=== PATIENT | female | born 1960 | race Caucasian/White ===

== ENCOUNTER 2021-09-16 18:07 | Emergency (ER) | payer OTHER, SELFPAY ==
--- NOTE | 2021-09-16 18:12 | ED.URI ---
HPI - URI/Sore Throat General Chief Complaint: Upper Respiratory Infection Stated Complaint: Chills,Headache Time Seen by Provider: 09/16/21 18:12 Source: patient Mode of arrival: ambulatory Limitations: no limitations History of Present Illness HPI Narrative: Ms. Jenkins is a 61-year-old female patient presenting to the clinic today with complaints of chills, fever, and headache x8 days. She reports that she was seen by her primary care provider a few days ago and was told that she had water behind her ears and was told to take Flonase but she states that she does not do Flonase because she does not like it. States her temperature has gotten as high as 102 ?F in the evening. She denies any known exposure to anybody with COVID, flu, or strep Related Data Home Medications Medication Instructions Recorded Confirmed No Home Medications 09/16/21 09/16/21 Allergies Allergy/AdvReac Type Severity Reaction Status Date / Time No Known Allergies Allergy Verified 09/16/21 18:31 Review of Systems Review of Systems: Pertinent positives per HPI. Patient denies any rash, visual changes, dizziness, cough, runny nose, sore throat, shortness of breath, chest pain, palpitations, nausea, vomiting, diarrhea, constipation, abdominal pain, or any urinary issues. PMFSH Comments At the time of my signature, I reviewed and agree with the nursing past medical, surgical, social, and family history. There is no relevant family history pertinent to the patient complaint. Exam Narrative: General: Well-developed, well nourished, in no apparent distress Head: Normocephalic, atraumatic Eyes: Pupils equally round and reactive to light bilaterally, EOM intact, sclera and conjunctive clear, no discharge, lids normal Ears: TMs intact and dull, ear canals clear, no drainage, grossly hearing normal. Nose: Nares patent, clear discharge, no inflammation, no sinus tenderness. Mouth: Oropharynx without lesions or masses, good dentition, MMM. Oropharynx mildly red without tonsillar enlargement Neck: Supple, trachea midline, no enlargement of anterior or posterior cervical nodes, no thyroid masses or goiter palpable. Cardio: Regular rate and rhythm, s1 and s2 normal, no murmur appreciated. Resp: Clear to auscultation bilaterally anteriorly and posteriorly, no rhonchi, rales, wheezing or rubs Abdomen: Soft, pliable, nontender to palpation, bowel sounds present all 4 quadrants, no organomegaly, no CVAT tenderness Course Course Emergency Course: Portions of this record may have been created with voice recognition software. Level of Care: Express Care Visit Vital Signs Vital signs: Vital signs reviewed MDM - URI/Sore Throat MDM Narrative Medical decision making narrative: At the time of visit patient is resting comfortably on the exam table. Blood test and urine analysis are negative for any infection. Her symptoms have been ongoing for 8 days so I do not feel that testing for COVID or influenza would be beneficial as there is no treatment other than supportive measures. I suspect the patient has viral syndrome and supportive measures were discussed with the patient she voiced understanding of discharge instructions and agrees to treatment plan. Differential Diagnosis Differential diagnosis: Likely upper respiratory infection, sinusitis, viral infection, bronchitis, influenza, pharyngitis and other (COVID, UTI) Discharge Plan Discharge Clinical Impression: Viral syndrome Patient Disposition: Home, Self-Care Condition: Stable Instructions: Viral Syndrome (ED) Additional Instructions: Strep screen negative in the clinic. We will send for culture UA negative for infection Lung sounds are clear on assessment. Since your symptoms have been going on for 8 days I do not feel that testing for covid or influenza is needed as there is no treatment except for supportive measures listed below. Increase fluids and stay well hydrated
[2021-09-16 18:21] VITALS: BP 108/85; PULSE 80; RESP 18; TEMP 37.5; O2SAT 97
== END 2021-09-16 18:58 | disposition home or self-care (01) ==
PROVIDERS: Emergency Provider Nurse Practitioner Family
DX: B34.9 Viral infection, unspecified (principal)
CPT/HCPCS: 81003; 87081; 87880; 99203; G0463

== ENCOUNTER 2023-03-30 13:22 | Emergency (ER) | payer OTHER, SELFPAY ==
[2023-03-30 13:28] VITALS: BP 111/52; PULSE 67; RESP 16; TEMP 36.6; O2SAT 97
--- NOTE | 2023-03-30 13:28 | ED.URI ---
HPI - URI/Sore Throat General Chief Complaint: Upper Respiratory Infection Stated Complaint: Sinus Infection and Earache Time Seen by Provider: 03/30/23 13:23 Source: patient Mode of arrival: ambulatory Limitations: no limitations History of Present Illness HPI Narrative: Marie is a 62-year-old female patient presenting to the clinic today with complaints of possible sinus infection and earache. She reports symptoms have been going on since . She reports that she did 102 earlier her illness however the fever has resolved. Is blowing out green nasal drainage in having a lot of sinus pressure and bilateral ear pain. MD elicited complaint: sore throat and nasal congestion Related Data Allergies Allergy/AdvReac Type Severity Reaction Status Date / Time No Known Allergies Allergy Verified 03/30/23 13:24 Review of Systems Review of Systems: Pertinent positives per HPI. Patient denies any fever, chills, rash, headache, visual changes, dizziness, shortness of breath, chest pain, palpitations, nausea, vomiting, diarrhea, constipation, abdominal pain, or any urinary issues. PMFSH Comments At the time of my signature, I reviewed and agree with the nursing past medical, surgical, social, and family history. There is no relevant family history pertinent to the patient complaint. Exam Narrative: General: Well-developed, well nourished, in no apparent distress Head: Normocephalic, atraumatic Eyes: Pupils equally round and reactive to light bilaterally, EOM intact, sclera and conjunctive clear, no discharge, lids normal Ears: TMs intact and congested, ear canals clear, no drainage, grossly hearing normal. Nose: Nares patent, green nasal discharge, moderate inflammation, maxillary sinus tenderness. Mouth: Oral pharynx without lesions or masses, good dentition, MMM. Neck: Supple, trachea midline, no enlargement of anterior or posterior cervical nodes, no thyroid masses or goiter palpable. Cardio: Regular rate and rhythm, s1 and s2 normal, no murmur appreciated. Resp: Clear to auscultation bilaterally, no rhonchi, rales, wheezing or rubs Course Course Emergency Course: Portions of this record may have been created with voice recognition software. Level of Care: Express Care Visit Vital Signs Vital signs: Vital signs reviewed MDM - URI/Sore Throat MDM Narrative Medical decision making narrative: At the time of visit patient is resting comfortably on the exam table. Patient appears to be nontoxic. I suspect patient has acute bacterial rhinosinusitis. Prescription for Augmentin and prednisone was sent to pharmacy. Supportive measures were discussed with the patient and they voiced understanding discharge instructions and agrees to treatment plan. Return precautions reviewed Differential Diagnosis Differential diagnosis: Likely upper respiratory infection, otitis media, sinusitis, viral infection, bronchitis, influenza, pharyngitis and other (COVID) Discharge Plan Discharge Clinical Impression: Acute bacterial rhinosinusitis Patient Disposition: Home, Self-Care Condition: Stable Instructions: Antibiotic Form, Rhinosinusitis (ED) Additional Instructions: Take prescription medications only as prescribed-Augmentin and prednisone Increase fluids and stay well hydrated Tylenol/motrin for pain/fever Flonase and OTC antihistamines as directed Vicks vapor rub to open sinuses Sinus rinses for congestion Cepacol spray, cough drops, throat lozenges, warm tea with honey/lemon, gargle salt water to soothe throat BRAT diet for diarrhea Clear liquids x 24 hours then advance as tolerated for nausea/vomiting Go to the ED if you develop a worsening in your condition- high fever not controlled by Tylenol or Motrin, dehydration, weakness, lethargy, shortness of breath, or chest pain. Follow up with your PCP in 3-5 days if symptoms persist. Prescriptions: New prednisone 20 mg tablet
== END 2023-03-30 13:40 | disposition home or self-care (01) ==
PROVIDERS: Emergency Provider Nurse Practitioner Family
DX: J01.90 Acute sinusitis, unspecified (principal)
CPT/HCPCS: 99213; G0463

== ENCOUNTER 2024-05-27 12:33 | Emergency (ER) | payer OTHER, SELFPAY ==
--- NOTE | 2024-05-27 12:38 | ED_ITS ---
HPI - URI/Sore Throat General Chief Complaint: Upper Respiratory Infection Stated Complaint: sinus irritation Time Seen by Provider: 05/27/24 12:37 Source: patient Mode of arrival: ambulatory Limitations: no limitations History of Present Illness HPI Narrative: Patient is a 64-year-old female who presents with a week and half of sinus congestion, runny nose, ear irritation, intermittent cough. Reports 100.4 fever on Thursday but has not had 1 since. Patient denies any nausea, vomiting, diarrhea who sore throat. Patient has taken turmeric. Related Data Allergies Allergy/AdvReac Type Severity Reaction Status Date / Time No Known Allergies Allergy Verified 05/27/24 12:40 Review of Systems Review of Systems: All systems reviewed & are unremarkable except as noted in HPI and below Constitutional: Constitutional: Denies chills, Denies fatigue, Denies fever(s), Denies headache(s), Denies malaise and Denies weakness Eyes: Eyes: Denies blurry vision, Denies itchy eyes and Denies loss of vision ENT: Reports otalgia, Denies headache(s), Reports nasal congestion, Denies sinus pain, Reports sinus pressure and Denies sore throat Cardiovascular: Cardiovascular: Denies chest pain, Denies irregular heart rhythm and Denies dyspnea Respiratory: Respiratory: Reports cough and Denies dyspnea Gastrointestinal: Gastrointestinal: Denies abdominal pain, Denies diarrhea, Denies nausea and Denies vomiting Musculoskeletal: Musculoskeletal: Denies back pain, Denies myalgias and Denies arthralgias Integumentary/Breasts: Skin/Breast: Denies pruritus and Denies rash Neurologic: Denies headache(s), Denies loss of vision and Denies weakness Psychiatric: Psychiatric: Reports no additional psychiatric complaints Endocrine: Endocrine: Denies fatigue Allergic/Immunologic: Allergic/Immunologic: Denies itchy eyes PMFSH Comments At time of signature, agree with nursing past medical, surgical, social and family history. There is no relevant family history pertinent to the presenting complaint. Exam Const: General: cooperative, healthy appearing, comfortable, no acute distress and well nourished Nutritional Appearance: well nourished Orientation/consciousness: patient oriented x3 Limitations: no limitations HENMT: Head: normal to inspection, normocephalic and atraumatic Ears: hearing grossly normal bilaterally, external ears normal, TM's normal bilaterally, EAC's normal and no periauricular adenopathy Face/Nose/Sinus: Normal external nose present, Abnormal mucous membranes and turbinates present erythematous bilateral and diffuse, normal facial exam, face symmetric and Facial tenderness on exam of face and sinuses Face and sinus: normal facial exam and face symmetric Mouth: Yes Normal oral and palatal mucosa present, Yes lip normal, Yes tongue normal, Yes Normal salivary glands and ducts present, Yes oropharynx normal and Yes moist mucous membranes Teeth and gingiva: dentition normal Throat: posterior oropharynx normal, tonsils normal and uvula midline Eyes: General: appearance normal, both eyes and all related structures Alignment and Position: alignment normal and position normal Periorbital: periorbital findings normal Eyelids: eyelids normal Pupils: Equal, round and reactive pupils present Neck: Neck: normal visual inspection, full ROM, no lymphadenopathy and supple Chest: Chest palpation & inspection: normal inspection of the chest and normal palpation of entire chest wall Resp: Effort & Inspection: normal respiratory effort and able to speak in complete sentences Auscultation: clear to auscultation bilaterally, no crackles, no rales, no rhonchi and no wheezes Cardio: Rate: regular rate Rhythm: regular rhythm Heart sounds: S1 normal heart sound present and S2 normal heart sound present GI: Inspection: normal to inspection Skin: General skin exam: normal color and no rashes or lesions noted Neuro: General: patient oriented x3 and moves all extremities Cranial nerves: Yes Equal, round and reactive pupils present Speech: normal speech Gait exam (Neuro): Normal gait present Extrem: General: normal to inspection, full ROM and no edema Psych: Appearance: grossly normal and well kempt Mental Status: mental status grossly normal Speech and movement: Normal speech and movement present Affect: normal affect Attitude: cooperative Thought process: Normal thought process present Course Course Emergency Course: Discharge instructions reviewed with patient, as well as provided in writing per nursing staff. The instructions also include specific and strict return/GO TO THE ER as well as f/u information. All questions have been answered, and the patient deny any further questions with discharge and discharge plan. Portions of this record may have been created with voice recognition software Level of Care: Express Care Visit Vital Signs Vital signs: Vital Signs Temperature 36.5 C 05/27/24 12:46 Pulse Rate 67 05/27/24 12:46 Respiratory Rate 18 05/27/24 12:46 Blood Pressure 118/67 05/27/24 12:46 Pulse Oximetry 99 05/27/24 12:46 Oxygen Delivery Room Air 05/27/24 12:46 Temperature 36.5 C 05/27/24 12:46 Pulse Rate 67 05/27/24 12:46 Respiratory Rate 18 05/27/24 12:46 Blood Pressure 118/67 05/27/24 12:46 Pulse Oximetry 99 05/27/24 12:46 Oxygen Delivery Room Air 05/27/24 12:46 Reviewed MDM - URI/Sore Throat MDM Narrative Medical decision making narrative: Pt well hydrated appearing, in no respiratory distress, hemodynamically stable. Recommend supportive care. The patient is stable at time of discharge the clinical impression was discussed and the patient was given the opportunity to ask questions, which were addressed as completely as possible given the information available at present. Anticipatory guidance and return to care precautions were discussed and the importance of primary care follow-up was stressed and encouraged. The patient voiced understanding of the plan, yelena cations to return, and the need for follow-up. Differential diagnosis considered: Bronchitis, Torres virus, strep pharyngitis, allergic rhinitis, upper respiratory tract infection, sinusitis, rhinosinusitis, nasopharyngitis. viral pharyngitis, otitis media, otitis externa, otitis effusion, foreign body, cerumen impaction, viral syndrome, and influenza.? Exam findings show no acute concerns or changes; patient is non-toxic appearing and is in no distress.? Patient is appropriate for outpatient treatment and follow- up.? Medical Records Attestation: I reviewed the patient's medical records. Discharge Plan Discharge Clinical Impression: Sinusitis Qualifiers: Sinusitis location: maxillary Chronicity: acute Recurrence: non-recurrent Q ualified Code(s): J01.00 - Acute maxillary sinusitis, unspecified Patient Disposition: Home, Self-Care Condition: Stable Instructions: Sinusitis (ED) Additional Instructions: Take antibiotic as prescribed. Other symptomatic treatments include: -Alternate Tylenol and Motrin per package directions for fever or pain: Tylenol 650-1000mg by mouth every 4-6 hours. Do not exceed 4000mg in 24 hours. Advil (Ibuprofen) 600 mg by mouth every 6 hours. Do not exceed 2400mg in 24 hours. 8 AM: Tylenol 11 AM: Ibuprofen 2 PM: Tylenol 5 PM: Ibuprofen 8 PM: Tylenol 11 PM: Ibuprofen 2 AM: Tylenol 5 AM: Ibuprofen -Antihistamine medication such as Benadryl at night and Zyrtec/Claritin/[place] during the day can help improve symptoms. -Use Flonase twice a day for 5 days then daily to help reduce the inflammation and dry up your sinuses. -You can also use Sudafed or Mucinex. Be sure to drink plenty of water with these medications at least 8 ounces with every dose and it is important to drink 8 to 10 glasses of water per day. Water is a natural decongestant -Eat and drink things that are easy to swallow, like tea or soup, or popsicles. -Oral rinses such as: Salt water gargles and/or may use topical anesthetic (eg. Chloraseptic spray) or lozenges to relieve dryness or throat pain). -Frequent hand washing or hand outfitter cabin is one of the best ways to prevent spread of infection. -Using a vaporizer or humidifier at night will also help thin secretions and help with coughing up phlegm. Call your Primary Care Doctor and make a follow-up appointment in 3 days. If yo ur cough worsens, you develop a fever greater than 103, you develop shaking chills, a fast heartbeat, trouble breathing and/or feel you are are breathing much faster than usual, call your Primary Care Doctor or go to the ER. Patient Language: Pashto Prescriptions: New amoxicillin-pot clavulanate 875-125 mg tablet 1 tablet PO Q12H 10 Days Qty: 20 0RF No Action prednisone 20 mg tablet 40 mg PO DAILY 5 Days Qty: 10 0RF amoxicillin-pot clavulanate 875-125 mg tablet 1 tablet PO Q12H 10 Days Qty: 20 0RF Follow-up/Referrals: Scott Maria MD [Physician] - 3 Days Time of Disposition: 13:30
[2024-05-27 12:46] VITALS: BP 118/67; PULSE 67; RESP 18; TEMP 36.5; O2SAT 99
--- OUTSIDE RECORDS SUMMARY | 2024-05-27 12:55 | XMS_ITS | Clinical Summary ---
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 Gender Identity Not on file Sexual Orientation Not on file Plan of Treatment Health Maintenance Due Date Last Done Comments Cervical Cancer Screening Pa p Smear (Age 30 to 64) Every 3 Years 1960 Colorectal Cancer Screening Colonoscopy (10 Years) 1960 Annual Physical 1963 Hepatitis C 1978 DTaP, Tdap and Td Vaccines ( 1 - Tdap) 1979 Cervical Cancer Screening Pa p with HPV Testing (Age 30 to 64) Every 5 Years 1990 Cervical Cancer Screening with HPV 1990 Mammogram Screening 2000 Zoster Vaccines (1 of 2) 2010 COVID-19 Vaccine ( - 2023-2 5 season) 2023 Influenza Adult (#1) 2023 RSV Immunization or 60+ Years (1 - 1-dose 75+ series) 2035 Meningococcal B Vaccine Aged Out No l onger eligible based on patient's age to complete this topic Meningococcal Vaccine Aged Out No lyndsey kayley eligible based on patient's age to complete this topic Pneumococcal Vaccine: Pediat rics (0 to 5 Years) and At-Risk Patients (6 to 64 Years) Aged Out No longer eligible b ased on patient's age to complete this topic RSV Immunizations Under 20 Months Aged Out No longer eligible based on patient's age to complete this topic Insurance Care Teams Buffing Wheel Operator Relationship Specialty Start Date End Date Lulú Iyer, RN PCP - General REGISTERED NURSE 05/26/19
--- OUTSIDE RECORDS SUMMARY | 2024-05-27 12:55 | XMS_ITS | Data Portability ---
Author Organization [facility], [address] (MD) Address [address] 4th [place] [address] Care Team Providers Care Veneer Redrier Name Role Phone AZAEL DOCKERY Primary Care Provider [phone] Assessment Encounter Date Assessment Date Assessment LastModified by Organization Details LastModified Time 03/21/2024 03/21/2024 1. Well woman gynecological examination; - Pap smear: 09/06/2013 ASCUS cannot exclude HSIL, negative high-risk HPV. Colposcopy 09/30/2013 negative. Pap smear 12/06/2014 negative cytology, negative high-risk HPV. Pap smear 02/22/2019 negative cytology, negative high-risk HPV. Pap smear obtained today, will follow results and communicate with patient. - HPV vaccine: none. Patient is not a candidate secondary to age. - Mammogram: 04/04/2021 BIRADS 1. Mammogram 01/30/2023 BI-RADS 1. Mammogram ordered. Discussed with patient the importance of yearly mammogram screening for breast cancer. Patient voiced understanding. - Breast self-awareness discussed with patient. She was advised to contact the office if she has any breast concerns. The patient voiced understanding. - Colonoscopy: 04/02/2023 with follow-up in 5 years. Patient is aware that her colonoscopy is due 03/2028. Colon cancer screening with colonoscopy recommended. Will refer patient to gastroenterology. - DEXA scan: none. DEXA osteoporosis screening at 65 years of age unless otherwise indicated. - Contraception: bilateral tubal ligation. - Patient is not currently sexually active. - Patient declines STD testing today. - Hepatitis C screenin09/24/2021 nonreactive. - Hereditary cancer risk assessment: completed today and noted for maternal aunt with breast cancer in her 40s and mother with history of uterine cancer at 59. Declines genetic counseling. -Patient counseled on calcium 600 mg by mouth daily with additional 600 mg/day in diet and vitamin D 600 international units by mouth daily and regular weightbearing exercise for bone health. -Patient denies history of postmenopausal bleeding. Patient was counseled to communicate to [employer] immediately with any vaginal bleeding or spotting. Patient voiced understanding. 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 Ria Yee Not available Not available Not available Lab Pap test, slide(s) , cervical 2023 024 [email or web address] De Only - De Laboratory, [facility] [address], [id number], 04/04/2024 10:25:54 Referral None recorded . Procedures None recorded . Surgeries None recorded . Imaging MAMMO, screenin g, digital, bilatera l 2023 024 OMAR Sc Only - Sc Radiology, [address] [place] [address], [id number], 04/15/2024 10:33:02 MAMMO, screenin g, digital, bilatera l 2023 026 [email or web address] De Only - [facility], [address] [place] [address], [id number], 03/21/2024 17:42:13 Medication Orders None recorded . Patient TargetsNo targets recorded. Patient InstructionsNo instructions recorded. Reason for Referral None Reported. 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 Perfo rmed at: [facility] Order ing Provi mily: Dipesh mindy, Ivis Linares nt Name: VALERIE HERNANDEZ maylin #: [id number] /A ge/Ge nder: 1960 (Age: 63) / F Proce dure Date: 03/21 SP ECIME N RECEI JOSEPH * SureP ath HPV DNA with Pap, Cervi renan/E ndoce rvica l Speci men Adequ acy Satis facto ry for evalu ation Endoc ervic al cell/ trans forma tion zone compo nent absen t Cytol ogic Diagn osis Negat korina for intra epith elial lesio n or malig akin Squam ous epith elial atrop 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 The marion HPV Test is a polym erase chain react ion (PCR) -base d DNA ampli ficat ion test that simul taneo usly ident ifies a beckford d resul t for 12 HR HPV types (HPV- 31, 33, 35, 39, 45, 51, 52, 56, 58, 59, 66 and 68) and indiv idual resul ts for HPV-1 6 and HPV-1 8. High Risk HPV types are assoc iated with cervi renan carci noma and its predi sposi ng lesio ns: cervi renan atypi a and high grade squam ous intra epith elial lesio n (mode rate and sever e dyspl jh, carci noma in situ/ TRISTIN 2 and TRISTIN 3). The U.S. Food and Drug Admin istra tion (FDA) has appro joseph this test for use with SureP ath speci mens. The perfo rmanc e kirill cteri stics of this test were verif ied by the [facility] ([facility] [place] [facility] is autho rized under Clini renan Labor atory Impro vemen t Amend ments (CLIA ) to perfo rm high- compl exity testi ng. Recom menda tion The Ameri can Cance r Socie ty (ACS) , Ameri can Socie ty for Colpo scopy and Cervi renan Patho logy (ASCC P), and Ameri can Socie ty for Clini renan Patho logy (ASCP ) recom mends that women who recei ve negat korina resul ts on both tests shoul d be rescr eened no more frequ ently than every five years . HPV DNA posit korina, cytol ogy negat korina women shoul d be follo wed conse rvati vely repea ting BOTH tests in 12 month s. HPV-n egati ve ASC-U S shoul d be rescr eened with co-te sting in 3 years . All other Pap test inter preta tions shoul d be follo wed accor ding to ASCCP Conse nsus Guide lines for that parti cular inter preta tion. HPV testi ng is order ed as part of refle x testi ng as indic ated by the requi sitio n order and/o r as a resul t of addit ional testi ng reque sts submi tted by the physi faith. EL ECTRO NICAL LY VERIF IED BY FARSHAD ON T FARSHAD ON, SCT(A SCP)C M 025 15:15 CL INICA L/MEN STRUA L HISTO RY Menst rual Hx: Postm enopa usal Other Clini renan Condi tions : ICD-1 0 Code: z01.4 19 The Pap test is a scree maria g test for uteri ne cervi renan cance r with an inher ent, but low false negat korina rate. A biops y is recom marija d for any suspi cious or visib le lesio n. The patie nt shoul d be remin ded to consu lt a gynec ologi c care provi mily if they exper ience any suspi cious signs or sympt oms regar dless of the Pap test resul t. END OF REPOR T Not Available De Only - [facility] [address] [place] [address], [id number], 03/29/2024 11:32:04 04/15/19 25 04/15/2024 MAMMO , scree maria g, digit al, bilat eral [address] [address] Teleph one Name: MARIE RODRIGUEZ [id number] am Date: 2024 Age: 64Phys ician: STEVE ROSSI MD, TASHA MANZO : 1Ex aminat ion: MAMM BILATE RAL DIGITA L SCREEN ING EXAM: MAMM BILATE RAL DIGITA L SCREEN ING, MAMM SCREEN ING TOMOSY NTHESI S ACCESS ION: [id number], [id number] 06 EXAM DATE: 025 9:30 AM HISTOR Y: Screen ing. COMPAR MIRYAM: Prior studie s dating back to 019. DENSIT Y: There are scatte red areas of fibrog landul ar densit y. FINDIN GS: 2D digita l compos ite views as well as 3D digita l tomosy nthesi s views were perfor med. There are no suspic ious masses , calcif icatio ns, or other findin gs within either breast . There has been no signif icant interv al change . IMPRES MAYLIN: There is no mammog raphic eviden ce of malign dali. ASSESS MENT: BI-RAD S 1: Negati ve. RECOMM ENDATI ON: 1. Screen ing Mammog tamika bilate ral in 1 year COMMEN TS: The patien t will be entere d into an automa venu remind er system for a screen ing mammog tamika in 1 year. The patien t has been or will be contac venu with the result s of this exam. Electr onical ly signed in [place] cribe by: MILDRED NAVARRETE MD on:03/24 9:29 AM cc: Page PAGE 1 of DEVON MADDIE 1 OMAR Sc Only - [facility] [address] [place] [address], [id number], 04/15/2024 12:30:19 Result Notes None recorded. Procedures Surgical History Date Name Laterality Status Provider Name and Address Organization Details Recorded Time 4 Date of Last Pap Smear completed [facility] 03/21/2024 17:17:22 3 Date of Last Mammogram completed [facility] 03/21/2024 17:17:25 Imaging Results Imaging Date Name Status LastModified by Organiz ation Details LastModified Time 04/15/2024 MAMMO, screening, digital, bilateral completed [facility] Only - [facility] [address] [place] [address], [id number], 04/15/2024 12:30:19 Procedure Notes None recorded. Medical Equipment None Reported. Allergies Allergen ID Allergen Name Allergen Category Reaction Reaction Severity Criticality Documentation Date Start Date Code Code System Note Provider Name and Address Organization Details Recorded Time 402549 phenazopy ridine Not available rash Not available Not available 04/20/20232016 8120 RxNorm React ion: Rash; Comme nt: React ion Date: 30 Jan 2017 ; Not Available Not Available Not Available 751683 latex environme nt,medica tion Not available Not available Not available 04/20/20232017 07042 91 RxNorm Comme nt: Latex ; Not Available Not Available Not Available Medications Name Sig Start Date Stop Date Status Note LastModified by Organization Details LastModified Time amoxicillin 500 mg capsule TAKE 1 CAPSULE BY MOUTH THREE TIMES DAILY UNTIL GONE active Not Available Not Available N ot Available prednisone 20 mg tablet TAKE 2 TABLETS BY MOUTH DAILY FOR 5 DAYS active Not Available Not Available N ot Available valacyclovir 500 mg tablet TAKE 1 TABLET BY MOUTH TWICE DAILY DIRECTED . APPOINTMENT REQUIRED FOR FUTURE REFILLS active Not Available Not Available No t Available peg-electrol yte solution 420 gram oral solution TAKE DIRECTED active Not Available Not Available No t Available cephalexin 500 mg tablet TAKE 1 TABLET BY MOUTH TWICE DAILY active Not Available Not Available No t Available amoxicillin 875 mg-potassium clavulanate 125 mg tablet TAKE 1 TABLET BY MOUTH EVERY 12 HOURS FOR 10 DAYS active Not Available Not Available Not Available nitrofuranto in monohydrate/ macrocrystal s 100 mg capsule TAKE 1 CAPSULE BY MOUTH TWICE DAILY active Not Available Not Available No t Available Vitals Date Recorded Body height Body mass index (BMI) Body weight Systolic blood pressure Diastolic blood pressure Provider Name and Address Organization Details Last Updated DateTime 03/21/2024 167.64 cm 29.4 kg/m2 88252.89 g 120 mm[Hg] 82 mm[Hg] [facility] 17:16:50 Social History Question Answer Notes LastModified by Organizat ion Details LastModified Time Tobacco Smoking Status Never Smoker [facility] 03/21/2024 17:17:50 What Is Your Level Of Alcohol Consumption? None [email or web address] Information not available 03/21/2024 Sex: Unknown Functional Status None recorded. Mental Status None recorded. Family History Nothing Reported. Medical History No medical history recorded. Gynecological History Statement/Question Response Date of Last Pap Smear 03/21/2024 Current Control Method Menopause Date of Last Mammogram 01/30/2023 Sexually Active? N Obstetrics History GPAL:G 6 P 2 0 4 1 Type Value Full Term 2 Spontaneous 4 Living 1 Total 6 Past Encounters Encounter ID Performer Location Encounter Start Date Encounter Closed Date Diagnosis/Indication Diagnosis SNOMED-CT Code Diagnosis ICD10 Code Diagnosis Note [id number] RIA YEE MD [address] [facility] (MD) [address] [place] [address] 03/21/2024 16:53:00 03/22/2024 10:15:40 Breast neoplasm screening status 290133850 Z12.31 Female gen annette finding 570022714 Z01.419 Health Concerns Section Related Observation LastModified by Organization Detai ls LastModified Time None Recorded Concern Status LastModified by Organization Details LastModified Time None Recorded Advance Directives Directive None Recorded Payers Encounter Date Sequence Insurance Name Policy Number Policy Alex Covered Member ID Alex Member ID Guarantor Name 03/21/2024 1 [facility] [id number] Marie Jenkins [id number] Marie Jenkins Notes Date Note Type Note Provider Name and Address Organization Details Recorded Time 03/21/2024 text/html Ms. Jenkins is a donte 63-year-old -0-4-1 postmenopausal since 50 years of age status post endometrial ablation who presents to the office for establish well woman gynecological visit. Patient states that sadly her son a few months ago. I expressed my deepest condolences and provided my support. She has no complaints today. She denies headache, light headedness, shortness of breath, chest pain, heart palpitations, nausea, vomiting, fever, chills, vaginal discharge, vaginal bleeding, vulvar vaginal bulging, incontinence, hot flashes, vaginal dryness, vulvar or vaginal pruritus, abdominal pain, pelvic pain, GI symptoms, other symptoms, breast pain, breast masses, nipple discharge and breast skin changes. She denies prodromal symptoms and herpes outbreaks. Past medical history: varicose veins, history of ovarian cyst, history of uterine fibroids, hip arthritis. Patient recently started GLP-1 medications for weight loss.Past surgical history: D&C x 3, LEEP 2013, salpingotomy in 1980 secondary to ectopic , bilateral tubal ligation with NovaSure endometrial ablation 2007, breast biopsy, sclerosis treatment for varicose veins, right leg vein ablation.Obstetrical history: [ ]Family history: Patient denies history of colon cancer, uterine cancer, cervical cancer, ovarian cancer or breast cancer.Social history: Patient denies tobacco use, illicit drug use and alcohol consumption. 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 She exercises regularly every day. 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 Gynecology history:LMP: 50 years of ageSTD history:patient has history of chlamydia and herpes. She denies other history of STDs and STIs.Pap smear: 02/22/2019 negative cytology, negative high-risk HPV.HPV vaccine: NoneChlamydia gonorrhea screening: None.Hepatitis C screenin09/24/2021 nonreactiveMammogram: 01/30/2023 BI-RADS 1DEXA: NoneColonoscopy: 04/02/2023 follow-up in 5 yearsContraception: Bilateral tubal ligationPatient is sexually active with her . RIA YEE MD [address] [facility], [place], [address], [facility] 03/24/2024 15:25:43 OBGyn Episode No OBEpisode recorded.
== END 2024-05-27 13:31 | disposition home or self-care (01) ==
PROVIDERS: Emergency Provider Nurse Practitioner Family
DX: J01.00 Acute maxillary sinusitis, unspecified (principal)
CPT/HCPCS: 99213; G0463